=== PATIENT | female | born 1955 | race Caucasian/White ===

== ENCOUNTER 2017-03-15 19:08 | Emergency (ER) | payer OTHER ==
[2017-03-15 20:09] VITALS: BP 110/58; PULSE 60; RESP 16; TEMP 98.5; O2SAT 97; BMI 41.5
--- NOTE | 2017-03-15 20:11 | ED PDOC ---
Arrival/HPI - General Chief Complaint: Abnormal Skin Integrity Time Seen by Provider: 03/15/17 20:07 Historian: Patient - History of Present Illness Narrative History of Present Illness (Text): 03/15/17 20:11 61 y/o female, pmh including htn/hyperlipidemia, nkda, c/o lump on the back of the back x 3 months with chronic redness to the lower extremities for over years , and lesion on the bilateral finger x 2 days. Pt. has painless lump on the lt. upper back for the past 3 months, non-painful but didn't get a chance to see the general surgeon. Pt. also has chronic on and off redness on the lower leg which resolved with the antibiotics plus 2 bite lesion on the bilateral hand middle finger lesion, no painful movement of the finger, no dizziness, no night sweat, no other medical or psychological complaints. Past Medical History - Provider Review Nursing Documentation Reviewed: Yes - Infectious Disease Hx of Infectious Diseases: None - Cardiac Hx Hypertension: Yes - Pulmonary Hx Asthma: Yes - Neurological Hx Headaches: Yes - Renal Hx Renal Disorder: No - Endocrine/Metabolic Hx Hypothyroidism: Yes - Hematological/Oncological Hx Anemia: Yes Other/Comment: Fatty Liver - Integumentary Hx Cellulitis: Yes - Musculoskeletal/Rheumatological Hx Arthritis: Yes Hx Osteoporosis: Yes - Gastrointestinal Hx Gastroesophageal Reflux: Yes - Genitourinary/Gynecological Hx Genitourinary Disorders: No - Psychiatric Hx Psychophysiologic Disorder: No Hx Substance Use: No - Surgical History Hx Appendectomy: Yes Hx Thyroidectomy: Yes - Anesthesia Hx Anesthesia: Yes Hx Anesthesia Reactions: No Hx Malignant Hyperthermia: No Family/Social History - Physician Review Nursing Documentation Reviewed: Yes Family/Social History: Unknown Family HX Smoking Status: Never Smoked Hx Alcohol Use: No Hx Substance Use: No Allergies/Home Meds Allergies/Adverse Reactions: Allergies No Known Allergies Allergy (Verified 03/15/17 19:58) Home Medications: Home Meds Medication Instructions Recorded Confirmed Atorvastatin [Lipitor] 20 mg PO DAILY 03/15/17 03/15/17 Ranitidine HCl [Zantac 75] 75 mg PO DAILY 03/15/17 03/15/17 Valsartan/Hydrochlorothiazide 1 tab PO DAILY 03/15/17 03/15/17 [Diovan Hct 320-25 mg Tablet] Review of Systems - Review of Systems Constitutional: absent: Fatigue, Fevers Eyes: absent: Vision Changes ENT: absent: Hearing Changes Respiratory: absent: Cough Cardiovascular: absent: Chest Pain Gastrointestinal: absent: Abdominal Pain, Nausea, Vomiting Genitourinary Female: absent: Dysuria, Frequency, Hematuria, Urine Output Changes, Vaginal Bleeding, Vaginal Discharge Musculoskeletal: absent: Arthralgias, Back Pain Skin: Rash. absent: Pruritis Neurological: absent: Headache, Dizziness, Focal Weakness, Gait Changes, Speech Changes, Facial Droop, Disequilibrium, Seizure Physical Exam Vital Signs Reviewed: Yes Vital Signs Temp Pulse Resp BP Pulse Ox 03/15/17 20:04 98.5 F 60 16 110/58 L 97 Temperature: Afebrile Pulse: Regular Respiratory Rate: Normal Appearance: Positive for: Well-Appearing, Non-Toxic, Comfortable Pain Distress: None Mental Status: Positive for: Alert and Oriented X 3 - Systems Exam Head: Present: Atraumatic, Normocephalic Pupils: Present: PERRL Extroacular Muscles: Present: EOMI Conjunctiva: Present: Normal Mouth: Present: Moist Mucous Membranes Neck: Present: Normal Range of Motion Respiratory/Chest: Present: Clear to Auscultation, Good Air Exchange. No: Respiratory Distress, Accessory Muscle Use Cardiovascular: Present: Regular Rate and Rhythm, Normal S1, S2. No: Murmurs Abdomen: Present: Normal Bowel Sounds. No: Tenderness, Distention, Peritoneal Signs Back: Present: Normal Inspection Upper Extremity: Present: Normal Inspection. No: Cyanosis, Edema Lower Extremity: Present: Normal Inspection. No: Edema Neurological: Present: GCS=15, Speech Normal, Motor Func Grossly Intact, Gait Normal, Memory Normal Skin: Present: Warm, Dry, Rashes (bilateral middle finger medial aspect visible less than 0.1cm lesion with mild redness but no streaking or ulcers. Billateral lower anterior medial higgins visible less than 5cm diameter patchy non- warmth dark redness rash noted with no streaking plus negative payam and armenta signs. Lt. upper lateral thoracic region visible approx. 3cm appear to be lipoma vs. cyst but no fluctuant abscess or redness. ), Normal Color Psychiatric: Present: Alert, Oriented x 3, Normal Insight, Normal Concentration Medical Decision Making ED Course and Treatment: 03/15/17 20:35 -labs -keflex and bactrim -observe and reassesss 03/15/17 20:55 -Pt. refused lab works or further evaluation, only wants the antibiotic and to leave the ER. AMA ER The patient refuses to stay in the Emergency Room (ER) to continue the care and wishes to leave the emergency department against my medical advice. Patient was told that staying in the ER is necessary and a full explanation of the reasons why was given, and understood by the patient with alert and oriented x4. The risk of leaving were explained in laymans term and including but not limited infection, sepsis, organ failure, pain, worsening of condition, permanent disability and from an undiagnosed or untreated condition. The patient accepts these risks, and is in my judgment is competent and capable of understanding the clinical situation and explanation of the risk of leaving. Patient was given the opportunity to ask questions and change mind. The patient was instructed regarding the best care for the present symptoms, and to follow up as soon as possible with the primary care doctor including specialist or return to the emergency department at an y time for continuing care. YOU SIGN OUT AGAINST MEDICAL ADVISE. YOU ARE GIVEN ZYRTEC, KEFLEX, BACTRIM DS, BACITRACIN OINTMENT, FOLLOW UP WITH YOUR OWN PMD SOON POSSIBLE, RETURN TO THE ER FOR ANY NEW OR WORSENING SIGNS OR SYMPTOMS INCLUDING CONTINUE THE CARE. - Medication Orders Current Medication Orders: Discontinued Medications Cephalexin Monohydrate (Keflex) 500 mg PO STAT STA PRN Reason: Protocol Stop: 03/15/17 20:24 Last Admin: 03/15/17 20:52 Dose: 500 MG Trimethoprim/Sulfamethoxazole (Bactrim Ds Tab) 1 tab PO STAT STA PRN Reason: Protocol Stop: 03/15/17 20:24 Last Admin: 03/15/17 20:52 Dose: 1 TAB - PA / BUS GREASER / Resident Statement /DO has reviewed & agrees with the documentation as recorded. Disposition/Present on Arrival - Present on Arrival Any Indicators Present on Arrival: No History of DVT/PE: No History of Uncontrolled Diabetes: No Urinary Catheter: No History of Decub. Ulcer: No History Surgical Site Infection Following: None - Disposition Have Diagnosis and Disposition been Completed?: Yes Diagnosis: Lipoma, Rash Disposition: AGAINST MEDICAL ADVICE Disposition Time: 20:36 Condition: GOOD Additional Instructions: YOU SIGN OUT AGAINST MEDICAL ADVISE. YOU ARE GIVEN ZYRTEC, KEFLEX, BACTRIM DS, BACITRACIN OINTMENT, FOLLOW UP WITH YOUR OWN PMD SOON POSSIBLE, RETURN TO THE ER FOR ANY NEW OR WORSENING SIGNS OR SYMPTOMS INCLUDING CONTINUE THE CARE. Prescriptions: Bacitracin Ointment [Bacitracin] 1 appful TOP BID #15 g Sulfamethoxazole/Trimethoprim [Bactrim DS 800 mg-160 mg] 1 tab PO BID #20 tab Cephalexin [cephalexin] 500 mg PO QID #40 cap Cetirizine HCl [Zyrtec] 10 mg PO DAILY PRN #7 tab.rapdis PRN Reason: Other Referrals: Tony Diaz MD [Staff Provider] - Follow up with primary Storm Cantu MD [Staff Provider] - Follow up with primary Forms: WORK NOTE
[2017-03-15] MEDS ORDERED: Tmp-Smz 800 mg-160 mg DS Tab PO STA (20:23)
== END 2017-03-15 21:10 | disposition left against medical advice (07) ==
LOC: ED 19:08
DX: R21 Rash and other nonspecific skin eruption (principal); D17.9 Benign lipomatous neoplasm, unspecified